=== PATIENT | female | born 1985 | race African-American/Black ===

== ENCOUNTER 2018-09-24 18:15 | Inpatient (IN) | payer OTHER ==
[2018-09-24 18:46] VITALS: BMI 29.4
[2018-09-24] MEDS ORDERED: DEXTROSE 5%-LACTATED RINGERS 1,000 ML IV SCH (19:00)
[2018-09-24 21:17] LABS: BASO % 0.3 % (0-2.0); EOS % 0.5 % (0-4.5); HEMATOCRIT 26.9 % (32.4-45.2); LYMPH % 12.4 % (8-40); MCH 25.6 pg (25.7-33.7); MCHC 33.5 g/dl (32.0-36.0); MEAN CELL VOLUME 76.6 fl (80-96); MEAN PLT VOLUME 8.2 fl (7.5-11.1); MONO % 6.4 % (3.8-10.2); NEUT % 80.4 % (42.8-82.8); PLATELET COUNT 313 K/MM3 (134-434); RBC 3.51 M/mm3 (3.60-5.2); RDW 18.1 % (11.6-15.6); WHITE BLOOD COUNT 9.4 K/mm3 (4.0-10.0)
[2018-09-24 21:40] LABS: ANION GAP 11 MMOL/L (8-16); BLOOD UREA NITROGEN 7 mg/dL (7-18); CALCIUM 8.8 mg/dL (8.5-10.1); CHLORIDE 106 mmol/L (98-107); CO2 22 mmol/L (21-32); CREATININE 0.6 mg/dL (0.55-1.3); GLUCOSE,RANDOM 105 mg/dL (74-106); POTASSIUM 3.9 mmol/L (3.5-5.1); SODIUM 139 mmol/L (136-145)
[2018-09-24 22:31] LABS: INR 0.96 (0.83-1.09); PROTHROMBIN TIME (PATIENT) 11.3 SEC (9.7-13.0)
[2018-09-24 22:34] LABS: ACTIVATED PTT 24.7 SECONDS (25.2-36.5)
--- NOTE | 2018-09-24 23:42 | HP ---
Past Medical History - Admission Chief Complaint: Rupture of membrane History of Present Illness: 32 yo , @ 40 weeks gestation, EDC 09/23/18, presents c/o spontaneous rupture of membrane. She c/o contractions pain. History Source: Patient Limitations to Obtaining History: No Limitations - Past Medical History ...: 1 ...Para: 0 ...Term: 0 ...: 0 ...Spon : 0 ...Induced : 0 ...Multiple Gestation: 0 ...EDC by Sono: 09/23/18 - Past Surgical History Past Surgical History: Yes: None Hx Myomectomy: No Hx Transabdominal Cerclage: No - Smoking History Smoking history: Never smoked Have you smoked in the past 12 months: No - Alcohol/Substance Use Hx Alcohol Use: No History of Substance Use: reports: None - Social History History of Recent Travel: No Home Medications - Allergies Allergies/Adverse Reactions: Allergies Allergy/AdvReac Type Severity Reaction Status Date / Time No Known Allergies Allergy Verified 09/24/18 18:30 - Home Medications Home Medications: Ambulatory Orders Vitamins (Sjr) - 1 tab PO DAILY 09/24/18 Family Disease History - Family Disease History Family History: Unremarkable Review of Systems - Review of Systems Constitutional: reports: No Symptoms Eyes: reports: No Symptoms HENT: reports: No Symptoms Neck: reports: No Symptoms Cardiovascular: reports: No Symptoms Respiratory: reports: No Symptoms Gastrointestinal: reports: No Symptoms Genitourinary: reports: Other (Rupture of membrane) Breasts: reports: No Symptoms Reported Musculoskeletal: reports: No Symptoms Integumentary: reports: No Symptoms Neurological: reports: No Symptoms Endocrine: reports: No Symptoms Hematology/Lymphatic: reports: No Symptoms Psychiatric: reports: No Symptoms Pain Intensity: 3 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 - Maternity Vital Signs: Vital Signs Temperature 98.3 F 09/24/18 22:00 Pulse Rate 96 H 09/24/18 22:00 Respiratory Rate 20 09/24/18 22:00 Blood Pressure 136/82 09/24/18 22:00 O2 Sat by Pulse Oximetry (%) Constitutional: Yes: Well Nourished Eyes: Yes: Conjunctiva Clear HENT: Yes: Atraumatic Neck: Yes: Supple Cardiovascular: Yes: Regular Rate and Rhythm Lungs: Clear to auscultation - Abdominal Exam/OB Number of Fetuses: Single Presentation: Vertex - Vaginal Exam/OB Dilatation (cm): 1 Effacement (%): 60 Amniotic Membrane Status: Ruptured Amniotic Fluid: Yes: Meconium Stained Meconium: Thick Station: -3 - 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 Musculoskeletal: Yes: WNL ...Motor Strength: WNL Psychiatric: Yes: Alert, Oriented - Labs Lab Results: CBC, BMP 09/24/18 20:45 09/24/18 20:45 Problem List - Problems (1) 40 weeks gestation of Code(s): Z3A.40 - 40 WEEKS GESTATION OF (2) Spontaneous rupture of amniotic membranes Code(s): AYK3961 - Assessment/Plan 40 weeks gestation Spontaneous rupture of membrane Admit to L&D Pre op for Consent signed Anesthesia to see patient
[2018-09-24] MEDS ORDERED: ELECTROLYTE-148 SOLN 500 ML IV ONE (23:45)
[2018-09-24] MEDS ORDERED: CITRIC ACID/SODIUM CITRATE 30 ML UNIT-DOSE CUP PO ONE ×2 (23:45)
[2018-09-25] MEDS ORDERED: PHENYLEPHRINE HCL 10 MG/1 ML SINGLE DOSE VIAL ONE (00:10)
[2018-09-25] MEDS ORDERED: morphine SULFATE/Preservative Free 0.5 MG/ML (1cc Syringe) ONE (00:10)
[2018-09-25] MEDS ORDERED: OXYTOCIN 20 UNITS in 0.9% NS 20 UNIT/1,000 ML INFUS.BAG IV ONE ×2 (00:17→02:39)
[2018-09-25] MEDS ORDERED: ONDANSETRON 4 MG/2 ML VIAL IVPUSH PRN (00:31)
[2018-09-25] MEDS ORDERED: IBUPROFEN 600 MG TABLET (FP) PO PRN (01:27)
[2018-09-25] MEDS ORDERED: METHYLERGONOVINE MALEATE 0.2 MG/1 ML AMP IM PRN (01:27)
[2018-09-25] MEDS ORDERED: oxyCODONE HCL 5 MG TABLET PO PRN (01:27)
--- NOTE | 2018-09-25 01:33 | OP ---
Operative Note - Note: Operative Date: 09/25/18 Pre-Operative Diagnosis: Non Reassuring Heart Rate Operation: Primary Low Transverse / Leiomyoma of the uterus Findings: Large myoma at the lower uterine segment. Post-Operative Diagnosis: Other (NRFHR and Leiomyoma of the uterus) Professor Of Biology: Jair Dixon Anesthesia: Spinal Specimens Removed: Placenta / Fibroid Estimated Blood Loss (mls): 700 Operative Report Dictated: Yes
[2018-09-25] MEDS ORDERED: CEFAZOLIN 1 GM/D5W 1 GM/50 ML BAG IVPB SCH (02:00)
[2018-09-25] MEDS: OXYTOCIN 20 UNITS in 0.9% NS 20 UNIT/1,000 ML INFUS.BAG IV SCH ×2 (02:06→13:31)
[2018-09-25] MEDS ORDERED: IBUPROFEN 800 MG/8 ML IJ IVPB ONE (02:39)
[2018-09-25] MEDS: IBUPROFEN 800 MG/8 ML IJ IVPB PRN ×3 (02:45→19:42)
[2018-09-25] MEDS: CEFAZOLIN 1 GM/D5W 1 GM/50 ML BAG IVPB SCH ×2 (08:56→16:59)
[2018-09-25] MEDS: PRENATAL VITAMINS W/ FOLIC ACID TABLET (FP) PO SCH (09:28)
[2018-09-25] MEDS: FERROUS SO4 325 MG TABLET (FP) PO SCH ×2 (09:28→22:23)
--- NOTE | 2018-09-25 10:03 | OP ---
DATE OF OPERATION: 09/25/2018 PREOPERATIVE DIAGNOSIS: Non-reassuring heart rate. POSTOPERATIVE DIAGNOSES: Non-reassuring heart rate. Leiomyoma of the uterus. SURGEON: Aydee Mitchell MD ASSEMBLY OPERATOR: FABIO Kowalski ANESTHESIA: Spinal. COMPLICATIONS: None. ESTIMATED BLOOD LOSS: 7 mL. PROCEDURE: Patient was taken to the operating room where spinal anesthesia was administered. Patient was then prepped and draped in proper sterile fashion. A Pfannenstiel skin incision was then made and carried down to the underlying layer of fascia. The fascia was incised in the midline and extended laterally. The superior aspect of the fascial incision was then grasped with a Keerthi clamp, elevated and the rectus muscles dissected off bluntly. The rectus muscles were then in the midline, the peritoneum identified and entered sharply with the Metzenbaum scissors. The peritoneal incision was then extended superiorly and inferiorly with good visualization of the bladder. A survey of the patient's pelvis revealed an enlarged, globular uterus consistent with fibroid. There was a fibroid palpated at the fundus and a fibroid at the lower uterine segment. The vesicouterine peritoneum was then grasped with a pick-up and entered sharply with the Metzenbaum scissors. This incision was extended laterally and a bladder flap created digitally. Then, the bladder blade was then inserted and the lower uterine segment was incised with a 10-blade. Then, this incision was extended laterally and a bladder flap created digitally. Then, the head was then delivered atraumatically. Nose and mouth were suctioned and the cord clamped and cut. The infant was handed to the waiting staff training and development manager. The placenta was then removed manually. Due to the presence of the uterus at the lower uterine segment, it was unable to close the uterine segment. Then, decision was made to remove the myoma and so using the cautery, the myoma was dissected off the muscle of the uterus. Then, using a 0 Biosyn, the lower uterine segment after being freed from the fibroid was closed in a locked fashion. A second layer of the same suture was used as a means to provide excellent hemostasis. Then, the pelvis was irrigated. The peritoneum was closed with 0 Biosyn and the fascia was reapproximated using 0 Vicryl in a running fashion and the skin was closed with chinmay. Patient tolerated procedure well. Patient was then taken to PACU in stable condition. John GARCIA/[id number]
--- NOTE | 2018-09-25 11:53 | PN ---
Progress Note (short form) - Note Progress Note: Anesthesiology Post-op 32 y.o. woman POD#0 s/p C/S under spinal anesthesia. She is awake and resting comfortably in bed in NAD. Pain is well-managed. She denies h/a and is able to move both legs with ease. VSS. 32 y.o. woman with stable post-operative course s/p C/S. Continue management as per primary team.
--- NOTE | 2018-09-25 14:30 | PN ---
Post Progress Note - Subjective Subjective: 32 yo Para 1 status post primary seen and evaluated. Doing well. No complaints. Post Day: 1 Type of Delivery: Primary C/S Vital Signs: Vital Signs Temperature 98.0 F 09/25/18 08:34 Pulse Rate 97 H 09/25/18 08:34 Respiratory Rate 18 09/25/18 14:00 Blood Pressure 107/58 L 09/25/18 08:34 O2 Sat by Pulse Oximetry (%) 100 09/25/18 03:35 Breast Exam: Yes: Soft Uterus: Yes: Fundus Firm Incision: Yes: Dressing dry and intact Abdomen/GI: Yes: Abdomen soft, Tolerating PO Lochia: Yes: Rubra Lochia, amount: Small Extremities: Yes: Calves non-tender Activity: Other (She's lying in bed) - Labs Labs: CBC WBC 9.4 K/mm3 (4.0-10.0) 09/24/18 20:45 RBC 3.51 M/mm3 (3.60-5.2) L 09/24/18 20:45 Hgb 9.0 GM/dL (10.7-15.3) L 09/24/18 20:45 Hct 26.9 % (32.4-45.2) L 09/24/18 20:45 MCV 76.6 fl (80-96) L 09/24/18 20:45 MCH 25.6 pg (25.7-33.7) L 09/24/18 20:45 MCHC 33.5 g/dl (32.0-36.0) 09/24/18 20:45 RDW 18.1 % (11.6-15.6) H 09/24/18 20:45 Plt Count 313 K/MM3 (134-434) 09/24/18 20:45 MPV 8.2 fl (7.5-11.1) 09/24/18 20:45 Absolute Neuts (auto) 7.6 K/mm3 (1.5-8.0) 09/24/18 20:45 Neutrophils % 80.4 % (42.8-82.8) 09/24/18 20:45 Lymphocytes % 12.4 % (8-40) D 09/24/18 20:45 Monocytes % 6.4 % (3.8-10.2) 09/24/18 20:45 Eosinophils % 0.5 % (0-4.5) 09/24/18 20:45 Basophils % 0.3 % (0-2.0) 09/24/18 20:45 Nucleated RBC % 0 % (0-0) 09/24/18 20:45 Problem List - Problems (1) 40 weeks gestation of Code(s): Z3A.40 - 40 WEEKS GESTATION OF (2) Spontaneous rupture of amniotic membranes Code(s): CWE6488 - (3) History of primary section Code(s): Z98.891 - HISTORY OF UTERINE SCAR FROM PREVIOUS SURGERY Assessment/Plan Status post primary Stable Ambulation Analgesia as needed Continue post op care
[2018-09-25] MEDS: ACETAMINOPHEN 325 MG TABLET (FP) PO PRN (17:00)
[2018-09-25] MEDS: SIMETHICONE 80 MG TAB.CHEW (FP) PO PRN (17:00)
[2018-09-26] MEDS ORDERED: BISACODYL 10 MG SUPP.RECT RC PRN (01:27)
[2018-09-26 08:13] LABS: BASO % 0.3 % (0-2.0); EOS % 0.4 % (0-4.5); HEMATOCRIT 22.5 % (32.4-45.2); LYMPH % 11.8 % (8-40); MCH 23.8 pg (25.7-33.7); MCHC 30.3 g/dl (32.0-36.0); MEAN CELL VOLUME 78.4 fl (80-96); MEAN PLT VOLUME 8.2 fl (7.5-11.1); MONO % 5.3 % (3.8-10.2); NEUT % 82.2 % (42.8-82.8); PLATELET COUNT 249 K/MM3 (134-434); RBC 2.87 M/mm3 (3.60-5.2); RDW 17.8 % (11.6-15.6); WHITE BLOOD COUNT 11.1 K/mm3 (4.0-10.0)
[2018-09-26 08:26] LABS: HEMOGLOBIN 6.8 GM/dL (10.7-15.3)
[2018-09-26] MEDS: SIMETHICONE 80 MG TAB.CHEW (FP) PO PRN ×2 (09:45→23:52)
[2018-09-26] MEDS: ACETAMINOPHEN 325 MG TABLET (FP) PO PRN ×2 (09:45→23:52)
[2018-09-26] MEDS: IBUPROFEN 600 MG TABLET (FP) PO PRN ×2 (09:45→23:52)
[2018-09-26] MEDS: FERROUS SO4 325 MG TABLET (FP) PO SCH ×2 (09:45→21:12)
[2018-09-26] MEDS: PRENATAL VITAMINS W/ FOLIC ACID TABLET (FP) PO SCH (09:45)
--- NOTE | 2018-09-26 14:07 | PN ---
Post Progress Note - Subjective Subjective: 32 yo Para 1 status post primary , seen and evaluated. Doing well. She denies any dizziness nor fatigue. She declines blood transfusion despite severe anemia. Post Day: 2 Type of Delivery: Primary C/S Vital Signs: Vital Signs Temperature 98.8 F 09/26/18 09:48 Pulse Rate 84 09/26/18 09:48 Respiratory Rate 20 09/26/18 09:48 Blood Pressure 118/63 09/26/18 09:48 O2 Sat by Pulse Oximetry (%) 100 09/25/18 03:35 Breast Exam: Yes: Soft Uterus: Yes: Fundus Firm Incision: Yes: Dressing dry and intact Abdomen/GI: Yes: Abdomen soft, Tolerating PO Lochia: Yes: Rubra Lochia, amount: Small Extremities: Yes: Calves non-tender Activity: Ambulating - Labs Labs: CBC WBC 11.1 K/mm3 (4.0-10.0) H 09/26/18 07:30 RBC 2.87 M/mm3 (3.60-5.2) L 09/26/18 07:30 Hgb 6.8 GM/dL (10.7-15.3) L* 09/26/18 07:30 Hct 22.5 % (32.4-45.2) L D 09/26/18 07:30 MCV 78.4 fl (80-96) L 09/26/18 07:30 MCH 23.8 pg (25.7-33.7) L 09/26/18 07:30 MCHC 30.3 g/dl (32.0-36.0) L 09/26/18 07:30 RDW 17.8 % (11.6-15.6) H 09/26/18 07:30 Plt Count 249 K/MM3 (134-434) D 09/26/18 07:30 MPV 8.2 fl (7.5-11.1) 09/26/18 07:30 Absolute Neuts (auto) 9.2 K/mm3 (1.5-8.0) H 09/26/18 07:30 Neutrophils % 82.2 % (42.8-82.8) 09/26/18 07:30 Lymphocytes % 11.8 % (8-40) 09/26/18 07:30 Monocytes % 5.3 % (3.8-10.2) 09/26/18 07:30 Eosinophils % 0.4 % (0-4.5) 09/26/18 07:30 Basophils % 0.3 % (0-2.0) 09/26/18 07:30 Nucleated RBC % 0 % (0-0) 09/26/18 07:30 Problem List - Problems (1) 40 weeks gestation of Code(s): Z3A.40 - 40 WEEKS GESTATION OF (2) Spontaneous rupture of amniotic membranes Code(s): KPF9752 - (3) History of primary section Code(s): Z98.891 - HISTORY OF UTERINE SCAR FROM PREVIOUS SURGERY (4) Status post primary low transverse section Code(s): Z98.891 - HISTORY OF UTERINE SCAR FROM PREVIOUS SURGERY Assessment/Plan Status post primary Anemia Counseling on risks and benefits of blood transfusion. Analgesia as needed Continue post op care
[2018-09-27] MEDS: PRENATAL VITAMINS W/ FOLIC ACID TABLET (FP) PO SCH (10:59)
[2018-09-27] MEDS: IBUPROFEN 600 MG TABLET (FP) PO PRN ×2 (10:59→17:52)
[2018-09-27] MEDS: FERROUS SO4 325 MG TABLET (FP) PO SCH ×2 (10:59→21:07)
[2018-09-27] MEDS: ACETAMINOPHEN 325 MG TABLET (FP) PO PRN ×2 (11:00→17:51)
--- NOTE | 2018-09-27 15:19 | PN ---
Post Progress Note - Subjective Subjective: doing well. No dizziness, no fatigue Post Day: 2 Type of Delivery: Primary C/S Vital Signs: Vital Signs Temperature 98.4 F 09/27/18 08:30 Pulse Rate 96 H 09/27/18 08:30 Respiratory Rate 20 09/27/18 08:30 Blood Pressure 113/61 09/27/18 08:30 O2 Sat by Pulse Oximetry (%) 100 09/25/18 03:35 Breast Exam: Yes: Soft Uterus: Yes: Fundus Firm Incision: Yes: Abdirizak intact Abdomen/GI: Yes: Abdomen soft, Tolerating PO Lochia: Yes: Rubra Lochia, amount: Small Extremities: Yes: Calves non-tender Perineum: Yes: Intact Activity: Ambulating - Labs Labs: CBC WBC 11.1 K/mm3 (4.0-10.0) H 09/26/18 07:30 RBC 2.87 M/mm3 (3.60-5.2) L 09/26/18 07:30 Hgb 6.8 GM/dL (10.7-15.3) L* 09/26/18 07:30 Hct 22.5 % (32.4-45.2) L D 09/26/18 07:30 MCV 78.4 fl (80-96) L 09/26/18 07:30 MCH 23.8 pg (25.7-33.7) L 09/26/18 07:30 MCHC 30.3 g/dl (32.0-36.0) L 09/26/18 07:30 RDW 17.8 % (11.6-15.6) H 09/26/18 07:30 Plt Count 249 K/MM3 (134-434) D 09/26/18 07:30 MPV 8.2 fl (7.5-11.1) 09/26/18 07:30 Absolute Neuts (auto) 9.2 K/mm3 (1.5-8.0) H 09/26/18 07:30 Neutrophils % 82.2 % (42.8-82.8) 09/26/18 07:30 Lymphocytes % 11.8 % (8-40) 09/26/18 07:30 Monocytes % 5.3 % (3.8-10.2) 09/26/18 07:30 Eosinophils % 0.4 % (0-4.5) 09/26/18 07:30 Basophils % 0.3 % (0-2.0) 09/26/18 07:30 Nucleated RBC % 0 % (0-0) 09/26/18 07:30 Problem List - Problems (1) 40 weeks gestation of Code(s): Z3A.40 - 40 WEEKS GESTATION OF (2) Spontaneous rupture of amniotic membranes Code(s): LWK1044 - (3) History of primary section Code(s): Z98.891 - HISTORY OF UTERINE SCAR FROM PREVIOUS SURGERY (4) Status post primary low transverse section Code(s): Z98.891 - HISTORY OF UTERINE SCAR FROM PREVIOUS SURGERY Assessment/Plan Status post primary Anemia Counseling on risks and benefits of blood transfusion. Analgesia as needed F/U CXR Continue post op care
[2018-09-27] MEDS ORDERED: SENNOSIDES 8.6MG TABLET (FP) PO PRN (21:18)
[2018-09-27] MEDS ORDERED: SENNOSIDES/DOCUSATE COMBO (SENNA PLUS) TABLET (UD) PO PRN (21:33)
[2018-09-28 07:23] LABS: BASO % 0.7 % (0-2.0); EOS % 1.5 % (0-4.5); HEMATOCRIT 23.7 % (32.4-45.2); HEMOGLOBIN 7.2 GM/dL (10.7-15.3); LYMPH % 15.6 % (8-40); MCH 24.1 pg (25.7-33.7); MCHC 30.6 g/dl (32.0-36.0); MEAN CELL VOLUME 78.9 fl (80-96); MEAN PLT VOLUME 7.7 fl (7.5-11.1); MONO % 4.7 % (3.8-10.2); NEUT % 77.5 % (42.8-82.8); PLATELET COUNT 300 K/MM3 (134-434); RDW 18.1 % (11.6-15.6); WHITE BLOOD COUNT 8.7 K/mm3 (4.0-10.0)
[2018-09-28] MEDS: PRENATAL VITAMINS W/ FOLIC ACID TABLET (FP) PO SCH (09:17)
[2018-09-28] MEDS: FERROUS SO4 325 MG TABLET (FP) PO SCH (09:17)
[2018-09-28] MEDS: IBUPROFEN 600 MG TABLET (FP) PO PRN (09:23)
[2018-09-28] MEDS: ACETAMINOPHEN 325 MG TABLET (FP) PO PRN (09:23)
[2018-09-28 09:36] VITALS: BP 119/63; PULSE 108; TEMP 98.6
[2018-09-28 11:46] LABS: ANISOCYTOSIS 1+; MACROCYTOSIS 0; PLATELET ESTIMATE NORMAL
--- NOTE | 2018-09-28 14:11 | DS ---
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 Vital Signs: Vital Signs Temperature 98.6 F 09/28/18 09:31 Pulse Rate 108 H 09/28/18 09:31 Respiratory Rate 20 09/28/18 09:31 Blood Pressure 119/63 09/28/18 09:31 O2 Sat by Pulse Oximetry (%) 100 09/25/18 03:35 Constitutional: Yes: Well Nourished, No Distress Labs: CBC, BMP 09/28/18 07:00 09/24/18 20:45 Delivery - Delivery Type of Anesthesia: Spinal Episiotomy/Laceration: None EBL (cc): 700 Delivery, Single - Stages of Labor Date 1st Stage Initiatied: 09/24/18 Time 1st Stage Initiated: 16:00 Date of Delivery: 09/25/18 Time of Delivery: 00:43 Time Placenta Delivered: 00:44 - Condition of Infant 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 Myometomy - Instructions - Home Medications Comprehensive Discharge Medication List: Ambulatory Orders Vitamins (Sjr) - 1 tab PO DAILY 09/24/18 Ibuprofen [Motrin -] 600 mg PO QID #28 tablet 09/28/18
--- NOTE | 2018-09-30 15:50 | PATH ---
Surgical Pathology Report Patient Name: LIZZ WALTON [facility]. Rec. 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 Specimen(s) Received A: PLACENTA B: FIBROID Clinical History , 40.2 weeks Primary , nonreassuring heart rate with meconium and lipoma of the uterus Final Diagnosis A. PLACENTA, SECTION: 473 G THIRD TRIMESTER PLACENTA WITH TRIVASCULAR UMBILICAL CORD, PLACENTAL MEMBRANES WITH MILD TO MODERATE ACUTE CHORIOAMNIONITIS, ACUTE MILD PHLEBITIS, ASSOCIATED MILD FUNISITIS, AND MECONIUM- LADEN MACROPHAGES. B. FIBROID, EXCISION: LEIOMYOMA WITH DEGENERATIVE CHANGES. Comment: Immunohistochemical stain performed and interpreted at [facility] show the leiomyoma is positive for Smooth muscle myosin heavy-chain (SMM-HC), supporting the above the diagnosis. Electronically Signed Shirley Sampson M.D. Gross Description A. The specimen is received fresh labeled placenta and is a 473 gram, 19.0 x 15.0 x 2.2 cm. placenta with attached membranes and umbilical cord. The attached membranes are soriano green, meconium stained, translucent with focal opacities and insert marginally. The umbilical cord measures 24 cm. in length and averages 1.1 cm. in diameter. The cord inserts centrally. No true knots or strictures are identified. Cut surface of the umbilical cord reveals 3 vessels. The surface is mayers green, meconium stained with moderate fibrin deposition and appropriate caliber vessels. The maternal surface is red-brown with focal defects. Sectioning reveals red-brown, spongy parenchyma. No lesions are identified. Maintenance Person sections are submitted in three cassettes as follows: 1- membrane rolls and umbilical cord; 2-3- full thickness sections of placenta. B. Received in formalin labeled "fibroid," is a 278 g, 9.7 x 7.5 x 6.5 cm soriano-mayers, rubbery mass. Sectioning reveals mayers-brown, degenerative parenchyma. Maintenance Person sections are submitted in 5 cassettes. /09/28/20184/2018
== END 2018-09-28 15:20 | disposition home or self-care (01) | DRG 540 ==
LOC: JLDR 18:15 → J3W 09-25 03:50
PROVIDERS: ADMIT Obstetrics & Gynecology; ATTEND Obstetrics & Gynecology
PROC: 10D00Z1 Extraction of Products of Conception, Low, Open Approach (ICD-10-PCS; principal; 2018-09-25)
PROC: 0UT90ZZ Resection of Uterus, Open Approach (ICD-10-PCS; 2018-09-25)
DX: O76 Abnormality in fetal heart rate and rhythm complicating labor and delivery (principal); O34.13 Maternal care for benign tumor of corpus uteri, third trimester; D25.9 Leiomyoma of uterus, unspecified; O48.0 Post-term pregnancy; Z3A.40 40 weeks gestation of pregnancy; O99.02 Anemia complicating childbirth; D64.9 Anemia, unspecified; Z37.0 Single live birth
CPT/HCPCS: 36415; 71046-TC-FY; 80048; 85025; 85610; 85730; 86593; 86850; 86900; 86901; 88305-TC; 88307-TC

== ENCOUNTER 2024-03-03 06:25 | Inpatient (IN) | payer BC, OTHER ==
[2024-03-03 07:00] VITALS: BMI 32.8
[2024-03-03] MEDS: ELECTROLYTE-148 SOLN 500 ML IV SCH ×2 (07:00→07:50)
[2024-03-03 07:13] LABS: BASO % 0.2 % (0-2.0); EOS % 0.8 % (0-4.5); HEMATOCRIT 35.1 % (32.4-45.2); HEMOGLOBIN 11.9 GM/dL (10.7-15.3); LYMPH % 18.7 % (8-40); MCH 30.5 pg (25.7-33.7); MCHC 33.8 g/dl (32.0-36.0); MEAN CELL VOLUME 90.3 fl (80-96); MEAN PLT VOLUME 8.2 fl (7.5-11.1); NEUT % 71.3 % (42.8-82.8); PLATELET COUNT 242 10^3/uL (134-434); RBC 3.88 M/mm3 (3.60-5.2); RDW 16.2 % (11.6-15.6); WHITE BLOOD COUNT 8.6 K/mm3 (4.0-10.0)
[2024-03-03] MEDS: CITRIC ACID/SODIUM CITRATE 30 ML UNIT-DOSE CUP PO ONE (07:15)
[2024-03-03 07:21] LABS: INR 0.94 (0.83-1.09); PROTHROMBIN TIME (PATIENT) 10.6 SEC (9.7-13.0)
[2024-03-03 07:24] LABS: ACTIVATED PTT 30.1 SECONDS (25.2-36.5)
[2024-03-03 07:31] LABS: POTASSIUM 3.9 mmol/L (3.5-5.1)
[2024-03-03 07:32] LABS: BLOOD UREA NITROGEN 7.8 mg/dL (7-18); CALCIUM 8.9 mg/dL (8.5-10.1)
[2024-03-03 07:36] LABS: CREATININE 0.5 mg/dL (0.55-1.3)
[2024-03-03] MEDS ORDERED: DEXAMETHASONE SOD PHOSPHATE 4 MG/1 ML VIAL ONE (07:57)
[2024-03-03] MEDS ORDERED: PHENYLEPHRINE HCL 10 MG/1 ML SINGLE DOSE VIAL ONE (07:57)
[2024-03-03] MEDS ORDERED: SODIUM CHLORIDE 0.9% P/F 10 ML VIAL IJ ONE ×2 (07:57→07:58)
[2024-03-03] MEDS ORDERED: KETOROLAC TROMETHAMINE 30 MG/1 ML VIAL ONE (07:57)
[2024-03-03] MEDS ORDERED: ONDANSETRON 4 MG/2 ML VIAL ONE (07:57)
[2024-03-03] MEDS ORDERED: METOCLOPRAMIDE HCL INJECTION 10 MG/2 ML VIAL ONE (07:57)
[2024-03-03] MEDS ORDERED: ceFAZolin SODIUM 1 GM VIAL ONE (07:57)
[2024-03-03] MEDS ORDERED: ePHEDrine SULFATE 50 MG/1 ML AMPULE ONE (07:58)
[2024-03-03] MEDS ORDERED: morphine SULFATE/PF 1 MG/2 ML (2cc Syringe - QUVA) ONE (08:00)
[2024-03-03] MEDS ORDERED: FENTANYL CITRATE/PF 50 MCG/ML VIAL ONE (08:00)
[2024-03-03] MEDS ORDERED: OXYTOCIN 10 UNITS/ML VIAL ONE ×2 (08:04→08:43)
[2024-03-03] MEDS ORDERED: ACETAMINOPHEN 325 MG TABLET (FP) PO PRN (08:14)
[2024-03-03] MEDS ORDERED: METHYLERGONOVINE MALEATE 0.2 MG/1 ML AMP IM PRN (08:14)
[2024-03-03] MEDS ORDERED: METOPROLOL TARTRATE 5 MG/5 ML VIAL ONE (08:55)
[2024-03-03] MEDS ORDERED: AZITHROMYCIN IVPB 500 MG/250 ML BAG IVPB ONE (08:58)
[2024-03-03 10:16] LABS: CORD BASE EXCESS -4.6 mmol/L (0-2); CORD HCO3 21.8 mmHg (20-29); CORD PCO2 44.9 mmHg (30-78); CORD pH 7.304 (7.14-7.44)
[2024-03-03 10:17] LABS: CORD BASE EXCESS -2.5 mmol/L (0-2); CORD HCO3 23.7 mmHg (20-29); CORD PCO2 45.7 mmHg (30-78); CORD pH 7.332 (7.14-7.44)
[2024-03-03] MEDS ORDERED: OXYTOCIN 20 UNITS in 0.9% NS 20 UNIT/1,000 ML INFUS.BAG IV ONE (10:19)
[2024-03-03] MEDS: OXYTOCIN 20 UNITS in 0.9% NS 20 UNIT/1,000 ML INFUS.BAG IV SCH (10:20)
[2024-03-03] MEDS: IBUPROFEN 800 MG/8 ML IJ IVPB SCH (11:49)
[2024-03-03] MEDS: ELECTROLYTE-148 SOLN 1,000 ML IV SCH (14:43)
[2024-03-03] MEDS ORDERED: oxyCODONE HCL 5 MG TABLET PO PRN ×2 (20:14)
[2024-03-04] MEDS: SIMETHICONE 80 MG TAB.CHEW (FP) PO PRN (00:16)
[2024-03-04 06:19] LABS: BASO % 0.3 % (0-2.0); EOS % 0.5 % (0-4.5); HEMATOCRIT 29.9 % (32.4-45.2); HEMOGLOBIN 9.8 GM/dL (10.7-15.3); LYMPH % 13.9 % (8-40); MCH 30.2 pg (25.7-33.7); MEAN CELL VOLUME 91.6 fl (80-96); MEAN PLT VOLUME 8.3 fl (7.5-11.1); MONO % 8.1 % (3.8-10.2); NEUT % 77.2 % (42.8-82.8); PLATELET COUNT 213 10^3/uL (134-434); RBC 3.26 M/mm3 (3.60-5.2); RDW 16.1 % (11.6-15.6); WHITE BLOOD COUNT 12.8 K/mm3 (4.0-10.0)
[2024-03-04] MEDS ORDERED: BISACODYL 10 MG SUPP.RECT RC PRN (08:14)
[2024-03-04] MEDS: IBUPROFEN 600 MG TABLET (FP) PO PRN (13:56)
[2024-03-04 22:14] VITALS: RESP 18
[2024-03-05 21:58] VITALS: TEMP 97.8
[2024-03-06 06:58] LABS: BASO % 0.6 % (0-2.0); EOS % 1.6 % (0-4.5); HEMATOCRIT 30.8 % (32.4-45.2); HEMOGLOBIN 10.1 GM/dL (10.7-15.3); LYMPH % 17.7 % (8-40); MCH 30.7 pg (25.7-33.7); MCHC 32.9 g/dl (32.0-36.0); MEAN CELL VOLUME 93.2 fl (80-96); MEAN PLT VOLUME 8.3 fl (7.5-11.1); NEUT % 73.1 % (42.8-82.8); PLATELET COUNT 245 10^3/uL (134-434); RBC 3.31 M/mm3 (3.60-5.2); RDW 16.3 % (11.6-15.6); WHITE BLOOD COUNT 7.4 K/mm3 (4.0-10.0)
[2024-03-06 11:18] VITALS: BP 125/72; PULSE 91
== END 2024-03-06 14:30 | disposition home or self-care (01) | DRG 788 ==
LOC: JLDR 06:25 → J3W 11:55
PROVIDERS: ADMIT Obstetrics & Gynecology; ATTEND Obstetrics & Gynecology
PROC: 10D00Z1 Extraction of Products of Conception, Low, Open Approach (ICD-10-PCS; principal; 2024-03-03)
DX: O34.219 Maternal care for unspecified type scar from previous cesarean delivery (principal); Z3A.38 38 weeks gestation of pregnancy; Z37.0 Single live birth
CPT/HCPCS: 36415; 36600; 80048; 82803; 85025; 85610; 85730; 86780; 86850; 86900; 86901; 88307-TC